=== PATIENT | female | born 1995 | race Caucasian/White ===

== ENCOUNTER 2016-12-13 15:20 | Inpatient (IN) | payer MEDICAID ==
[~2016-12-13] VITALS: Ht 162.6 cm; Wt 72.6 kg
[2016-12-13 15:27] VITALS: BP_SYST 135
[2016-12-13 15:49] LABS: BASOPHILS # (AUTO) 0.1 K/uL (0.0-0.2); BASOPHILS % (AUTO) 0.7 % (0.0-2.0); EOSINOPHILS # (AUTO) 0.4 K/uL (0.0-0.4); EOSINOPHILS % (AUTO) 4.2 % (0.0-4.0); HEMATOCRIT 37.7 % (36-48); HEMOGLOBIN 12.6 g/dL (12.0-16.0); LYMPHOCYTES # (AUTO) 2.2 K/uL (1.0-5.5); LYMPHOCYTES % (AUTO) 24.5 % (20.5-51.5); MEAN CORPUSCULAR HEMOGLOBIN 30 pg (27-31); MEAN CORPUSCULAR HGB CONC 33 % (32-36); MEAN CORPUSCULAR VOLUME 89 fL (79.0-98.0); MONOCYTES # (AUTO) 0.5 K/uL (0.0-1.0); MONOCYTES % (AUTO) 6.1 % (1.7-9.3); NEUTROPHILS # (AUTO) 5.7 K/uL (1.8-7.7); NEUTROPHILS % (AUTO) 64.5 % (40.0-70.0); PLATELET COUNT (AUTO) 528 K/uL (130-430); RED BLOOD CELL COUNT(AUTO) 4.23 MIL/uL (4.2-6.2); RED CELL DISTRIBUTION WIDTH 11.4 % (9.0-15.0); WHITE BLOOD COUNT (AUTO) 8.9 K/uL (4.8-10.8)
[2016-12-13 16:07] LABS: BILIRUBIN,URINE 1+ (NEGATIVE); BLOOD, URINE 2+ (NEGATIVE); CLARITY/URINE CLEAR (CLEAR); COLOR,URINE YELLOW (YELLOW); GLUCOSE,URINE NEGATIVE (NEGATIVE); KETONES,URINE NEGATIVE (NEGATIVE); LEUKOCYTE ESTERASE ,URINE 1+ (NEGATIVE); NITRITE, URINE NEGATIVE (NEGATIVE); PH,URINE 7.5 (5.0-8.0); PROTEIN URINE NEGATIVE (NEGATIVE)
[2016-12-13 16:22] LABS: CALCIUM 9.1 mg/dL (8.4-11.0); CREATININE 0.85 mg/dL (0.55-1.30); POTASSIUM 4.2 mmol/L (3.5-5.1)
[2016-12-13 16:26] LABS: BACTERIA,URINE FEW /HPF (None Seen); MUCUS,URINE None Seen /LPF (None Seen)
[2016-12-13 16:26] LABS: ALBUMIN 3.7 g/dL (3.4-4.8); TOTAL BILIRUBIN 1.6 mg/dL (0.0-1.0)
--- NOTE | 2016-12-13 17:58 | NUR ---
Patient triaged and placed in waiting room. VSS and patient appears in no acute distress at this time. Accompanied by self, awaiting available bed, and MD notified of need for MSE.
--- NOTE | 2016-12-13 18:01 | NUR ---
Pt brought by self ,A&oX4, pt c/o abd pain,N/V, skin pink and warm, respirations even and unlabored, cap refill <3, VS WNL, no active vomiting at this time, pt on stable condition.
--- NOTE | 2016-12-13 19:35 | NUR ---
Patient to ER bed 07 to gown for evaluation. Side rails up.
--- NOTE | 2016-12-13 20:20 | NUR ---
Dr Escalante at bedside to evaluate patient.
--- NOTE | 2016-12-13 20:54 | NUR ---
Medication reconciliation completed with information provided by patient. Any prior medication reconciliation on file was reviewed and corrected. Patient reports that she takes no medicine on a regular basis.
--- NOTE | 2016-12-13 21:10 | NUR ---
Patient will be admitted to care of Dr Downing. Admitted to med-surg unit. Will go to room 108-A. Belongings list completed. Summary report printed. Report will be given at bedside.
--- NOTE | 2016-12-13 21:16 | NUR ---
ADMISSION NOTE Received patient from ER via justin, received report from Doni KEANE. Patient admitted with diagnosis of cholecystitis. Patient oriented to hospital routine, call light, toileting and safety-patient verbalized understanding.
--- NOTE | 2016-12-13 21:30 | NUR ---
ROUNDS PATIENT IN BED, VITALS STABLE, DENIES ANY PAIN AT THIS TIME. ADMISSION ASSESSMENT DONE AND DOCUMENTED. PLAN OF CARE DISCUSSED AND PATIENT VERBALIZED UNDERSTANDING. ALL NEEDS ATTENDED TO. CALL LIGHT PLACED WITHIN REACH.
[2016-12-13 21:33] VITALS: BP_SYST 128
[2016-12-13] MEDS: D5NS 1,000 ML IV SCH (21:46)
--- NOTE | 2016-12-13 22:14 | NUR ---
PAGE PAGED DOCTOR LEX FOR ORDERS. SPOKE WITH BLANQUITA
--- NOTE | 2016-12-13 22:44 | NUR ---
CONSULT REASON CHOLECYSTISIS FOR DOCTOR EUFEMIA SPOKE WITH MEL
[2016-12-13] MEDS ORDERED: LEVOFLOXACIN 500 MG/D5W 100 ML IV ONE ×2 (22:45→23:03)
[2016-12-13] MEDS ORDERED: metroNIDAZOLE 500 mg/NS 100 ML IV ONE (23:03)
--- NOTE | 2016-12-14 | NUR ---
PATIENT RESTING: Patient resting quietly. No acute distress noted. Vital signs within normal range.
[2016-12-14 01:08] VITALS: BP_SYST 130
--- NOTE | 2016-12-14 02:15 | NUR ---
ROUNDS ASLEEP, NO PAIN NOR DISCOMFORT NOTED, WILL CONTINUE TO MONITOR.
--- NOTE | 2016-12-14 04:00 | NUR ---
PATIENT RESTING: Patient resting quietly. No acute distress noted. Vital signs within normal range.
[2016-12-14] MEDS: metroNIDAZOLE 500 mg/NS 100 ML IV SCH ×3 (05:13→22:29)
[2016-12-14 06:01] VITALS: BP_SYST 114
--- NOTE | 2016-12-14 06:50 | NUR ---
CLOSING NOTES PATIENT AWAKE, VITALS STABLE, ALL NEEDS ATTENDED TO. SAFETY MEASURES MAINTAINED. CALL LIGHT PLACED WITHIN REACH.
--- NOTE | 2016-12-14 07:30 | NUR ---
Initial notes: patient sleeping. Stable. 2 side rails up. Call light within reach. Report received from table games shift manager.
--- NOTE | 2016-12-14 08:26 | NUR ---
rounds: patient sleeping. no distress noted.
--- NOTE | 2016-12-14 09:24 | NUR ---
rounds: pt on bed awake, alert and oriented, doing breast pumping. Discussed plan of care. Remains NPO for possible procedure.
[2016-12-14 09:25] VITALS: BP_SYST 103
[2016-12-14] MEDS: D5NS 1,000 ML IV SCH (09:50)
[2016-12-14 10:20] LABS: BASOPHILS % (AUTO) 0.3 % (0.0-2.0); EOSINOPHILS # (AUTO) 0.5 K/uL (0.0-0.4); EOSINOPHILS % (AUTO) 3.8 % (0.0-4.0); HEMATOCRIT 34.1 % (36-48); HEMOGLOBIN 11.7 g/dL (12.0-16.0); LYMPHOCYTES # (AUTO) 2.3 K/uL (1.0-5.5); LYMPHOCYTES % (AUTO) 17.9 % (20.5-51.5); MEAN CORPUSCULAR HEMOGLOBIN 31 pg (27-31); MEAN CORPUSCULAR HGB CONC 34 % (32-36); MEAN CORPUSCULAR VOLUME 89 fL (79.0-98.0); MONOCYTES # (AUTO) 0.5 K/uL (0.0-1.0); MONOCYTES % (AUTO) 4.2 % (1.7-9.3); NEUTROPHILS # (AUTO) 9.3 K/uL (1.8-7.7); NEUTROPHILS % (AUTO) 73.8 % (40.0-70.0); PLATELET COUNT (AUTO) 413 K/uL (130-430); RED BLOOD CELL COUNT(AUTO) 3.82 MIL/uL (4.2-6.2); RED CELL DISTRIBUTION WIDTH 11.7 % (9.0-15.0)
[2016-12-14 10:23] LABS: WHITE BLOOD COUNT (AUTO) 12.6 K/uL (4.8-10.8)
--- NOTE | 2016-12-14 11:08 | NUR ---
rounds: patient on bed resting. no distress noted.
[2016-12-14 11:23] LABS: POTASSIUM 3.9 mmol/L (3.5-5.1)
[2016-12-14 11:24] LABS: ALBUMIN 3.2 g/dL (3.4-4.8); CALCIUM 8.7 mg/dL (8.4-11.0); CREATININE 0.79 mg/dL (0.55-1.30); TOTAL BILIRUBIN 0.8 mg/dL (0.0-1.0)
[2016-12-14 12:28] VITALS: BP_SYST 103
--- NOTE | 2016-12-14 13:46 | NUR ---
rounds: patient sleeping. no distress noted.
--- NOTE | 2016-12-14 14:35 | NUR ---
DC PLANNING Received note from RUBEN Adame director, to call Christina @ [facility] [phone], to ask for auth pt might be OON. Called & spoke w Christina states that pt is an Tammy pt(also under [facility], different CM) & transferred the call. Left msg for Pietro, left my direct # & direct CM office#.
--- NOTE | 2016-12-14 15:30 | NUR ---
LATE ENTRY: GI CONSULT CALLED TO DR CARDENAS, RE: ABDOMINAL PAIN. SPOKE TO CORINNA
--- NOTE | 2016-12-14 17:02 | NUR ---
Wagner Gotti consult: Wagner Gotti consult x2. First Dr. Adrian and 2nd Dr. Jalloh. No return call. Dr. Bender arrived in the unit at 17:00 and will see the pt. and pt to remain NPO.
[2016-12-14 17:54] VITALS: BP_SYST 110
--- NOTE | 2016-12-14 18:00 | NUR ---
Consent: Patient signed consent for HIDA scan and answered the MRI questionnaire.
--- NOTE | 2016-12-14 18:52 | NUR ---
closing notes: patient on bed awake. Stable. Needs attended. Remains NPO, ok for ice chips. Call light within reach. Report will be given to shift mgr.
[2016-12-14 19:50] VITALS: BP_SYST 116
--- NOTE | 2016-12-14 19:50 | NUR ---
INITIAL NOTES PT. RECEIVED RESTING IN BED. NO S/S OF SOB OR DISTRESS. VSS. PT ABLE TO MAKE NEEDS KNOWN. IV ACCESS NOTED TO RIGHT AC. NO SIGNS OF INFILTRATION NOTED. IVF INFUSING WELL ORDERED. PLAN OF CARE DISCUSSED WITH THE PT, USE OF CALL LIGHT ENCOURAGED. PT. VERBALIZES UNDERSTANDING. WILL CONT. TO MONITOR FOR CHANGES. SAFETY AND FALL PRECAUTIONS IN PLACE. CALL LIGHT IN REACH.
[2016-12-14] MEDS: LEVOFLOXACIN 500 MG/D5W 100 ML IV SCH (21:20)
--- NOTE | 2016-12-14 22:33 | NUR ---
rounds pt. sitting up in bed reading. iv abx infusing well as ordered. no adverse reactions noted. reminded pt. importance of remaining npo. verbalizes understanding. will cont. to monitor. call light in reach.
[2016-12-14] MEDS: ONDANSETRON HCL 4 MG/2 ML VIAL IVP PRN (22:47)
[2016-12-14] MEDS: MORPHINE 2 MG/ML INJ. SYRINGE IVP PRN (22:48)
--- NOTE | 2016-12-15 00:29 | NUR ---
ROUNDS PT SITTING UP IN BED. NO COMPLAINTS OF NAUSEA AT THIS TIME. STATES PAIN MEDICATION WAS EFFECTIVE IN LOWERING PAIN. FRIEND IS AT THE BEDSIDE. IV PATENT AND INFUSING FLUIDS ORDERED. WILL CONT. TO MONITOR. CALL LIGHT IN REACH.
[2016-12-15 00:37] VITALS: BP_SYST 136
--- NOTE | 2016-12-15 02:38 | NUR ---
rounds pt boyfriend sleeping in bed with pt. informed pt. kindly that our policy does not allow for two people to be in one bed. verbalizes understanding. provided boyfriend with a recliner. iv remains patent. pt. denies nausea or pain. all needs met. will cont. to monitor. call light in reach.
[2016-12-15 03:36] VITALS: BP_SYST 115
--- NOTE | 2016-12-15 04:22 | NUR ---
rounds pt. resting in bed with eyes closed. chest rise and fall noted. no signs of acute distress. no facial grimacing indicating pain. boyfriend at the bedside resting in recliner. will cont. to monitor. call light in reach.
[2016-12-15] MEDS: metroNIDAZOLE 500 mg/NS 100 ML IV SCH ×3 (05:37→23:13)
--- NOTE | 2016-12-15 06:23 | NUR ---
closing notes pt. resting in bed with eyes closed. chest rise and fall noted. no signs of acute distress. no facial grimacing indicating pain. pt remained NPO. pt boyfriend at the bedside in recliner. iv remains patent, fluids infusing well as ordered. all necessary needs were met throughout the shift. safety and fall precautions were maintained. will endorse care to am nurse. call light in reach. bed in lowest locked position.
[2016-12-15 07:28] LABS: BILIRUBIN,DIRECT 0.2 mg/dL (0.0-0.3); TOTAL BILIRUBIN 0.9 mg/dL (0.0-1.0)
[2016-12-15 08:00] VITALS: BP_SYST 107
--- NOTE | 2016-12-15 08:00 | NUR ---
Opening Note Report received from [facility] shift nurse. Patient is in stable condition and is currently resting in bed. IV is on the RAC 22g D5NS. Patient is currently NPO for a HIDA scan and MRI/MRCP. Patient is pumping breast milk at the bedside. Bed is in low position and call light is within reach. Will continue to monitor.
[2016-12-15] MEDS: ONDANSETRON HCL 4 MG/2 ML VIAL IVP PRN (09:59)
[2016-12-15] MEDS: MORPHINE 2 MG/ML INJ. SYRINGE IVP PRN ×2 (09:59→23:14)
--- NOTE | 2016-12-15 10:01 | NUR ---
RN Notes Patient left the unit for her HIDA scan via wheelchair accompanied by bettina,
--- NOTE | 2016-12-15 10:02 | NUR ---
NOTE Patient resting on the bed with eyes closed. No s/s of pain noted at this time. No acute distress. Safety measure maintained. Call light within reached. Will continue to monitor.
[2016-12-15 11:09] LABS: HEPATITIS A AB, IgM Negative (Negative); HEPATITIS B CORE AB, IgM Negative (Negative); HEPATITIS B SURFACE AG Negative (Negative)
--- NOTE | 2016-12-15 12:03 | NUR ---
Rounds Patient is resting in bed. Call light is within reach. Bed is in low position.
[2016-12-15 12:39] VITALS: BP_SYST 109
--- NOTE | 2016-12-15 14:00 | NUR ---
RN Notes Patient left the unit to MRI via wheelchair.
--- NOTE | 2016-12-15 14:45 | NUR ---
MD Rounds DR. Case rounded on the patient. Surgical consent was signed.
[2016-12-15 16:48] VITALS: BP_SYST 118
--- NOTE | 2016-12-15 17:05 | NUR ---
RN Notes Patient left the unit via bed to OR. Surgical consent was signed and placed in the chart.
[2016-12-15] MEDS ORDERED: LR 1,000 ML IV SCH (18:27)
[2016-12-15] MEDS ORDERED: MORPHINE 2 MG/ML INJ. SYRINGE IVP PRN ×3 (18:30)
[2016-12-15] MEDS ORDERED: METOCLOPRAMIDE HCL 10 MG/2 ML VIAL IVP PRN (18:30)
--- NOTE | 2016-12-15 18:50 | NUR ---
Closing Note Patient is still in OR. Will endorse care to the oncoming shift.
[2016-12-15] MEDS ORDERED: MORPHINE 4 MG/ML INJ. SYRINGE ONE (18:55)
--- NOTE | 2016-12-15 19:50 | NUR ---
BACK TO UNIT Patient back to unit via bed. No acute distress. Report gave by recovery nurse-DIYA Piedra. Patient C/O abdomen pain. AO x 4. Skin warm and dry to touch. IV intact to RAC, no redness, no swelling. Abdomen lap sites x 4, no bleeding , covered with clean and dry dressing. Discussed the safety issue, use call light when need help, and plan of care, verbally understanding. Safety measure maintained. Call light within reached. Bed in low position, side rails up. Will continue to monitor.
--- NOTE | 2016-12-15 21:11 | NUR ---
HAND OFF OF CARE Report gave to DIYA French at bedside. Patient no acute distress. Respiration even and unlabored. Abdomen pain 2/10 at this time. IV intact, no redness, no swelling. Mother at bedside. Safety measure maintained. Bed in low position, side rails up. Call light within reached. Gillian will take care the patient.
--- NOTE | 2016-12-15 21:15 | NUR ---
RN NOTES: RECEIVED REPORT FROM RN , PT STATED HAS PAIN WHILE MOVING BUT PAIN IS TOLERABLE ;VITALS ARE STABLE ; ASSESSMENT DONE ; NOTICED INCISION X4 IN THE ABDOMEN ; DRESSING CLEAN DRY AND INTACT ; NO ACTIVE BLEEDING NOTED ; WILL CONTINUE TO MONITOR PT . MOTHER AT BEDSIDE .
--- NOTE | 2016-12-15 21:30 | NUR ---
ICE CHIPS: PER ORDER PT CAN START WITH CLEAR LIQUID , PROVIDED ICE CHIP WILL MONITOR PT AND ADVANCE TO CLEAR LIQUID
[2016-12-15] MEDS: LEVOFLOXACIN 500 MG/D5W 100 ML IV SCH (22:04)
--- NOTE | 2016-12-15 23:15 | NUR ---
PAIN: PT C/O PAIN MEDICATED WITH MORPHINE PER ORDER .
[2016-12-15] MEDS: D5NS 1,000 ML IV SCH (23:16)
--- NOTE | 2016-12-15 23:30 | NUR ---
VOIDED: PT GOT UP WITH ASSIST AND USED RESTROOM ; PT VOIDED WELL ; ASSISTED PT BACK TO BED . PT IS COMFORTABLE .
[2016-12-15 23:57] VITALS: BP_SYST 134
--- NOTE | 2016-12-16 01:30 | NUR ---
RN ROUNDS: PT GOT UP WITH ASSISTANCE AND USED RESTROOM, PT VOIDED WELL ; PT IS COMFORTABLE ; NOT IN ANY ACUTE DISTRESS; WILL CONTINUE TO MONITOR.
--- NOTE | 2016-12-16 03:40 | NUR ---
RN ROUNDS: PT IS SLEEPING ; NOT IN ANY ACUTE DISTRESS; WILL CONTINUE TO MONITOR.
[2016-12-16 04:36] VITALS: BP_SYST 131
--- NOTE | 2016-12-16 05:00 | NUR ---
RN NOTES: PT IS SLEEPING , NOT IN ANY ACUTE DISTRESS; WILL CONTINUE TO MONITOR.
[2016-12-16] MEDS: metroNIDAZOLE 500 mg/NS 100 ML IV SCH (06:07)
[2016-12-16] MEDS: MORPHINE 2 MG/ML INJ. SYRINGE IVP PRN ×2 (06:09→10:23)
--- NOTE | 2016-12-16 06:56 | NUR ---
CLOSING NOTES; PT IS SLEEPING ON AND OFF, NOT IN ANY ACUTE DISTRESS; FAMILY AT BEDSIDE ; ASSISTED PT TO THE RESTROOM , PT VOIDED WELL ; ASSISTED PT BACK TO BED ;DUE MEDS GIVEN ; WILL CONTINUE TO MONITOR AND WILL ENDORSE TO NEXT SHIFT NURSE.
[2016-12-16 07:04] LABS: BASOPHILS % (AUTO) 0.3 % (0.0-2.0); EOSINOPHILS # (AUTO) 0.1 K/uL (0.0-0.4); EOSINOPHILS % (AUTO) 0.9 % (0.0-4.0); HEMATOCRIT 34.9 % (36-48); HEMOGLOBIN 11.8 g/dL (12.0-16.0); LYMPHOCYTES # (AUTO) 1.9 K/uL (1.0-5.5); MEAN CORPUSCULAR HEMOGLOBIN 31 pg (27-31); MEAN CORPUSCULAR HGB CONC 34 % (32-36); MEAN CORPUSCULAR VOLUME 90 fL (79.0-98.0); MONOCYTES # (AUTO) 0.6 K/uL (0.0-1.0); MONOCYTES % (AUTO) 4.5 % (1.7-9.3); NEUTROPHILS # (AUTO) 10.4 K/uL (1.8-7.7); NEUTROPHILS % (AUTO) 79.3 % (40.0-70.0); PLATELET COUNT (AUTO) 406 K/uL (130-430); RED BLOOD CELL COUNT(AUTO) 3.89 MIL/uL (4.2-6.2); RED CELL DISTRIBUTION WIDTH 11.9 % (9.0-15.0)
[2016-12-16 07:08] LABS: ALBUMIN 3.3 g/dL (3.4-4.8); CALCIUM 8.9 mg/dL (8.4-11.0); CREATININE 0.88 mg/dL (0.55-1.30); TOTAL BILIRUBIN 0.8 mg/dL (0.0-1.0)
--- NOTE | 2016-12-16 08:00 | NUR ---
Opening Note Patient is in stable condition. Surgical incisions are dry and intact. Bed is in low position. call light is within reach. Will continue to monitor.
[2016-12-16] MEDS ORDERED: LEVO500T20 PO (09:01)
[2016-12-16] MEDS ORDERED: METR500T PO (09:01)
[2016-12-16] MEDS: ONDANSETRON HCL 4 MG/2 ML VIAL IVP PRN (10:23)
--- NOTE | 2016-12-16 11:00 | NUR ---
Rounds Patient is resting in bed. Call light is within reach.
[2016-12-16 11:26] VITALS: BP_SYST 139
[2016-12-16 12:50] VITALS: BP_SYST 139
--- NOTE | 2016-12-16 13:50 | NUR ---
Transition of Care Note All transition of care instructions and prescriptions were provided to that patient she verbalized understanding. IV and ID band were removed. Patient left the unit in stable condition.
== END 2016-12-16 13:30 | disposition home or self-care (01) | DRG 951 ==
LOC: SED 15:20 → SMU 20:53
PROVIDERS: ADMIT Internal Medicine Hospice and Palliative Medicine; ATTEND Internal Medicine Hospice and Palliative Medicine
PROC: 0FT44ZZ Resection of Gallbladder, Percutaneous Endoscopic Approach (ICD-10-PCS; principal; 2016-12-15 15:00)
DX: O99.63 Diseases of the digestive system complicating the puerperium (principal); K86.2 Cyst of pancreas; K85.90 Acute pancreatitis without necrosis or infection, unspecified; K80.00 Calculus of gallbladder with acute cholecystitis without obstruction; J45.909 Unspecified asthma, uncomplicated; O99.53 Diseases of the respiratory system complicating the puerperium; E66.3 Overweight; Z68.27 Body mass index [BMI] 27.0-27.9, adult; Z88.0 Allergy status to penicillin
CPT/HCPCS: 36415; 74181; 76700-TC; 78226; 80053; 80076; 81000-TC; 83690-TC; 84703; 85025; 86705; 86709; 86886; 86900; 86901; 87081; 87086; 87340; 88304; 99285; A9537; C1727; J1956; J2270; J2405; J3490; J7042